=== PATIENT | female | born 2000 | race Caucasian/White ===

== ENCOUNTER 2023-01-14 16:20 | Observation (INO) | payer BC, SELFPAY ==
--- NOTE | ~2023-01-14 | CT_ITS ---
EXAMINATION: CT abdomen pelvis wo con DATE: 01/14/2023 20:00 INDICATION: pulmonary nodules, evaluation for metastatic sprea TECHNIQUE: Computed tomography (CT) of the abdomen and pelvis was performed without intravenous contr ast. Automated exposure control and iterative reconstruction technique were employed. The dose-length product was 1663.64 mGy-cm. COMPARISON: None. FINDINGS: Lower thorax: Unremarkable Liver: Normal. Biliary/Gallbladder: Gallbladder is normal. No bile duct dilation. Pancreas: No mass or duct dilation. Spleen: Normal. Adrenals:No mass. Kidneys: No mass, stone, or hydronephrosis. GI tract: No small or large bowel dilation. Normal appendix. Mesentery/Peritoneum: No ascites, mass, or free air. Scattered prominent mesenteric nodes, not pathol ogic by size criteria. Retroperitoneum: No mass. Scattered retroperitoneal lymph nodes, not pathologic by size criteria Pelvis: Pelvic organs are within normal limits. Soft Tissues: Soft tissues and body wall unremarkable. Bones: No acute osseous finding. IMPRESSION: No acute abdominal pelvic process detected. Reviewed, dictated and finalized at location K.
--- NOTE | ~2023-01-14 | XR_ITS ---
XR chest 1V portable 01/16/2023 05:37 Indication: Nodular infiltrates Procedure: AP portable chest Comparison: 01/14/2023 Findings: Heart size normal. Bilateral interstitial infiltrates. No pleural effusion or pneumothorax. No acute osseous abnormality. Impression: 1: Diffuse bilateral interstitial infiltrates may represent edema or pneumonia. Reviewed, dictated and finalized at location A. Impression: 1: Diffuse bilateral interstitial infiltrates may represent edema or pneumonia.
--- NOTE | ~2023-01-14 | CT_ITS ---
EXAMINATION: CTA chest PE protocol DATE: 01/14/2023 18:35 INDICATION: Shortness of breath TECHNIQUE: Computed tomography angiography (CTA) of the chest was performed with 100 mL Omnipaque-350 intravenous contrast timed to evaluate the pulmonary arteries. Coronal maximum intensity projection 3D-reconstructions were created by the technologist. The dose-length product (DLP) was 948.42 mGy-cm. Automated exposure control and iterative reconstruction technique were employed. COMPARISON: X-ray chest, same date. FINDINGS: Lung parenchyma and airways: Innumerable bilateral pulmonary nodules affecting all lobes and range in size between several millimeters to 1.5 cm. The nodules have subtle surrounding groundglass halos no definite central cavitation. Pleura: Unremarkable. Thoracic inlet, axillae and chest wall: Unremarkable. Thoracic aorta: Normal. Mediastinum: There are prominent but not pathologically enlarged mediastinal lymph nodes. Heart and pericardium: Normal. Coronary artery calcifications: Absent. Upper abdomen: No significant finding. Bones: No acute osseous finding. Pulmonary arteries: Study quality: Adequate. No pulmonary emboli detected. IMPRESSION: No CT evidence of pulmonary embolism. Innumerable pulmonary nodules, most likely secondary to septic emboli or fungal infection (such as as pergillosis, histoplasmosis, coccidiomycosis). Less common inflammatory/granulomatous diseases (nodular pulmonary amyloidosis, rheumatoid nodules, g ranulomatosis with polyarteritis) and neoplastic disease such as pulmonary lymphoma should be remain in the differential. Metastases are considered less likely given the patient's age. Reviewed, dictated and finalized at location K. IMPRESSION: No CT evidence of pulmonary embolism. Innumerable pulmonary nodules, most likely secondary to septic emboli or fungal infection (such as aspergillosis, histoplasmosis, coccidiomycosis). Less common inflammatory/granulomatous diseases (nodular pulmonary amyloidosis, rheumatoid nodules, granulomatosis with polyarteritis) and neoplastic disease such as pulmonary lymphoma should be remain in the differential. Metastases are considered less likely given the patient's age.
--- NOTE | ~2023-01-14 | XR_ITS ---
EXAMINATION: XR chest 2V Exam Date/Time: 01/14/2023 17:20 CDT HISTORY: SOB, mid chest pain, chest tightness Comparison: None. RESULT: Lines, tubes, and devices: None. Lungs and pleura: Scattered nodular appearing opacities. Diffuse moderate reticulonodular opacities and cuffing. Cardiomediastinal silhouette: Stable. Other: No acute osseous or upper abdominal finding. IMPRESSION: Scattered pulmonary nodules, overlying a background of bronchiolitis that can be seen with atypical i nfection, asthma, and small airways disease. Consider CT of the chest with contrast for further evalu ation. Reviewed, dictated and finalized at location K. IMPRESSION: Scattered pulmonary nodules, overlying a background of bronchiolitis that can b e seen with atypical infection, asthma, and small airways disease. Consider CT of the chest with contrast for further evaluation.
[2023-01-14 16:24] VITALS: BP 157/82; PULSE 126; RESP 20; TEMP 36.2; O2SAT 100
[2023-01-14 17:01] VITALS: O2SAT 100
[2023-01-14 17:03] VITALS: BP 148/78; PULSE 105; RESP 12; TEMP 37.3; O2SAT 100
[2023-01-14 17:06] VITALS: PULSE 103
[2023-01-14] MEDS: KETOROLAC 30 MG/ML VIAL (*BKC) IV PUSH (17:42)
[2023-01-14] MEDS: ALPRAZolam (*CRX) 0.5 MG TABLET PO (17:42)
[2023-01-14 17:46] LABS: Basophils Percent Auto 0.3 % (0.2-1.2); Eosinophils Absolute Auto 0.5 K/mm3 (0-0.3); Eosinophils Percent Auto 3.4 % (0-4.4); Hematocrit 40.7 % (37.0-47.0); Hemoglobin 13.5 g/dL (12.0-15.0); Immature Granulocyte Absolute 0.05 K/mm3 (0.00-0.031); Immature Granulocyte Percent A 0.3 % (0-0.5); Lymphocytes Absolute Auto 1.91 K/mm3 (0.9-3.2); Lymphocytes Percent Auto 13.1 % (18.3-44.2); Mean Corpuscular HGB Conc 33.2 g/dl (32-36); Mean Corpuscular Hemoglobin 29.7 pg (26-34); Mean Corpuscular Volume 89.6 fl (80-100); Monocytes Absolute Auto 1.1 K/mm3 (0.1-0.6); Monocytes Percent Auto 7.3 % (2.6-8.5); Neutrophils Percent Auto 75.6 % (45.5-73.1); Platelet Count Result 392 k/mm3 (150-375); Red Blood Count 4.54 M/mm3 (4.2-5.4); Red Cell Distribution Width 13.3 % (11.5-14.5); White Blood Count 14.6 K/mm3 (4.5-10.0)
[2023-01-14 18:06] LABS: Alanine Aminotransferase 18 U/L (6-35); Albumin Level 4.7 g/dL (3.5-5.1); Alkaline Phosphatase 80 U/L (38-126); Anion Gap 11 mmol/L (8-16); Aspartate Amino Transferase 29 U/L (14-36); Bilirubin,Total 0.5 mg/dL (0.2-1.3); Blood Urea Nitrogen 7 mg/dL (7-17); Calcium 9.6 mg/dL (8.4-10.2); Carbon Dioxide 26 mmol/L (22-30); Chloride 101 mmol/L (98-107); Estimated CRCL calculation 160 ml/min; Estimated Glomerular Filt Rate > 60; Glucose 94 mg/dL (65-110); Potassium 4.2 mmol/L (3.4-5.0); Sodium 138 mmol/L (137-145)
--- NOTE | 2023-01-14 19:03 | ED.SOB ---
HPI - SOB/Dyspnea General Chief Complaint: Shortness of Breath/Dyspnea Stated Complaint: Allergic reaction; SOB Time Seen by Provider: 01/14/23 16:54 History of Present Illness HPI Narrative: Patient is a 22-year-old female who presents ER with shortness of breath. Has pain with deep breath then. Feels like she cannot get a full deep breath. Reports she thinks she had a mobile piece of bread 2 days prior to symptom onset. No fevers or chills or sweats. No wheezing. No some fullness in her neck and central chest when she takes. Denies runny nose or sore throat or productive cough. She does report she has noticed some urticaria on her arms and lower back. She has started in the area body lotion reports its unscented. She began that the day the rash began 2 days ago. Patient reports at times she feels like she is having a panic attack. Patient reports that when she was younger, around 7 years ago, she lived in a room that had white mold growing above her room. Her mother confirms that they had to perform mold abatement. Patient was having issues with breathing and saw a homeopathic doctor who treated her with Claritin and symptoms improved. Patient has never had any abnormal imaging that her her mother remember. Additionally patient used to live on a farm when she was 6 years old. There was a mechanical silo in barn at the farm but she did not go inside the farm because it belonged to the [employer]. Patient's had no recent dental work. She does not use IV drugs Related Data Allergies Allergy/AdvReac Type Severity Reaction Status Date / Time cephalexin [From Keflex] Allergy Rash Verified 01/14/23 17:05 Review of Systems Review of Systems: All systems reviewed & are unremarkable except as noted in HPI and below Constitutional: Constitutional: Denies chills, Denies fatigue and Denies fever(s) ENT: Denies nasal congestion and Denies sore throat Cardiovascular: Cardiovascular: Reports chest pain, Denies rapid heart rate and Denies radiating jaw, neck or arm pain Respiratory: Respiratory: Denies cough, Reports dyspnea and Denies wheezing Gastrointestinal: Gastrointestinal: Denies abdominal pain, Denies nausea and Denies vomiting Integumentary/Breasts: Skin/Breast: Denies pruritus, Reports erythema, Reports rash and Denies skin ulcer [facility] Past Medical History Medical History (Updated 01/14/23 @ 21:10 by Thony Jackson MD) Anxiety Surgical History Surgical History (Updated 01/14/23 @ 19:51 by Thony Jackson MD) No pertinent past surgical history Social History Social History (Updated 01/14/23 @ 19:51 by Thony Jackson MD) Smoking status: Never smoker Substance use: never Exam Narrative: GENERAL: Anxious-appearing, morbidly obese, and in no acute distress. HEAD: Normocephalic, atraumatic. ENT: Mucous membranes moist. NECK: Supple. CHEST: Clear to auscultation. No respiratory distress. HEART: Tachycardic and regular. Normal peripheral pulses. EXTREMITIES: Normal range of motion. No edema. SKIN: Warm, dry, no rash. NEURO: Alert and oriented x3. PSYCH: Normal mood and affect. Course Course Emergency Course: 1939: Discussed case with Dr. Vasquez with pulmonology. He would like the patient admitted to the hospitalist service and additional testing to be run. He would like the patient to receive an HIV test as well as a test. He would request that blood cultures be ordered and patient be started on ceftriaxone and azithromycin (we will start levaquin due to cephalosporin allergy). He would also like the patient to have an echocardiogram tomorrow. Should the patient be able to provide sputum he would like to do sputum culture but patient reports she cannot provide any as she has not been having a productive cough. Furthermore he would like an ABG, thyroid testing, and a noncontrast CT scan of the abdomen pelvis. I have discussed the treatment plan at length with the patient and he
[2023-01-14 19:36] VITALS: BP 123/96; PULSE 96; RESP 20; O2SAT 97
--- NOTE | 2023-01-14 21:02 | PC.NURSE ---
pt has been stuck multiple times for blood work. able to obtain 1st set of cultures. phlebotomy at bedside to attempt for 2nd set.
[2023-01-14] MEDS: levoFLOXacin 750 MG/D5W 150 ML 750 MG/150 ML BAG 100 MG IVPB (21:15)
[2023-01-14 22:01] VITALS: BMI 47.3
--- NOTE | 2023-01-14 22:02 | ADMGEN ---
This patient, Dara Morocho, was admitted to Medical Room 254-01. Patient/family oriented to hospital policies and general routines including ID bracelet, bed and alarms, visiting hours, pain management, procedures, bathroom and other care routines, personal items, smoking policy, room service/diet, and visiting hours. Information on how to activate the Rapid Response Team has been discussed. Patient/Family are encouraged to report perceived risks to care and to ask questions if they do not understand what they are told or what they should do.
[2023-01-14 22:11] LABS: HIV 1/2 Ab P24 Ag Result Negative (Negative)
[2023-01-14 22:30] VITALS: BP 113/76; PULSE 88; RESP 20; TEMP 36.8; O2SAT 98
--- NOTE | 2023-01-14 22:39 | PC.NURSE ---
Ashley LEDEZMA aware unable to put in patient's medication, will call Kulwinder in AM.
--- NOTE | 2023-01-14 23:02 | PM.IMHP ---
H&P: HPI History of Present Illness Date/Time: 01/14/23 22:30 Chief Complaint: Shortness of breath and suspected allergic reaction. Narrative: This is a very pleasant 22-year-old female with asthma, mold allergy, and polycystic ovarian syndrome who presented to the emergency department via private vehicle from home for evaluation of shortness of breath and suspected allergic reaction. The patient provides the following history. On Tuesday morning she developed red and itchy eyes, sneezing, and small hives on the extremities and trunk. She has been taking Benadryl for her symptoms as she thought perhaps she had an allergic reaction to a piece of bread that was in the same loaf but far away from a piece of bread that had a small amount of mold growing. Since that time she has been feeling short of breath with some wheezing however her inhaler has not provided her with much benefit. She has been eating soft foods (banana, apple sauce) because she feels that her throat is tight when trying to swallow. She has also had some tightness in the upper chest, more so with deep inspiration, and feelings as though she cannot take in a deep breath. She has also had some mild nausea but no vomiting. She denies fever and sweats but reports that she is cold which is unusual for her. She was afebrile on arrival to the emergency department with stable vital signs. Her white blood cell count was a bit elevated 14.6 and her D-dimer was 0.50; CMP was unremarkable. Chest x-ray showed scattered pulmonary nodules and a subsequent CTA of the chest showed innumerable pulmonary nodules felt to be likely secondary to septic emboli or fungal infection with less common etiologies to include inflammatory/granulomatous diseases, pulmonary lymphoma, or metastases. CT of the abdomen pelvis showed no acute process. Pulmonology was consulted by the ED physician and Dr. Vasquez recommended starting her on azithromycin and ceftriaxone however she has a cephalosporin allergy and she was started on levofloxacin. She is being admitted in this setting for further treatment and evaluation. At the time my evaluation she feels okay and has no specific complaints aside from what is mentioned above. With further questioning she reports that her asthma is mainly exercise induced though it can flare up when the mold counts are high. She was exposed to some sort of white mold about 7 years ago which was apparently growing in the attic space above her bedroom. They underwent mold remediation and she has not had any exposure to mold or mildew since that time, to her knowledge. She grew up on a farm until the age of 6 however there were no animals at the farm and she never went into the silo. She denies recent travel and sick contacts. No dental pain or recent dental work. She has not been around animals or birds. She lives in an apartment in [place] and has not been exposed to well water. No personal or family history of autoimmune disease. No history of IV drug use. She denies risk factors for HIV and her screen was negative. Review of Systems Review of Systems: Twelve systems were reviewed and are negative except for as per HPI. [facility] Past Medical History Medical History (Updated 01/14/23 @ 23:16 by Ashley Abrams PA-C) Anxiety Asthma Depression Depression with anxiety Intermittent asthma Polycystic ovarian syndrome Surgical History Surgical History (Updated 01/14/23 @ 23:12 by Ashley Abrams PA-C) History of wisdom tooth extraction No pertinent past surgical history Family History Family History (Updated 01/14/23 @ 23:12 by Ashley Abrams PA-C) Other Family history non-contributory Social History Social History (Updated 01/14/23 @ 23:13 by Ashley Abrams PA-C) Social History: Surrogate medical decision maker: Jez Morocho, mother. Code status: Full code. Smoking status: Never smoker Alcohol intake: never Substance use: never Substance use type: d
[2023-01-15] MEDS: ALBUTEROL SULFATE (*SP) AEROSOL 1 PUFF 2 PUFF INHALATION (04:30)
[2023-01-15 04:55] VITALS: BP 121/80; PULSE 82; RESP 20; TEMP 36.4; O2SAT 98
[2023-01-15 05:44] LABS: Basophils Percent Auto 0.3 % (0.2-1.2); Eosinophils Absolute Auto 0.5 K/mm3 (0-0.3); Eosinophils Percent Auto 4.8 % (0-4.4); Hematocrit 37.5 % (37.0-47.0); Hemoglobin 12.3 g/dL (12.0-15.0); Immature Granulocyte Absolute 0.03 K/mm3 (0.00-0.031); Immature Granulocyte Percent A 0.3 % (0-0.5); Lymphocytes Absolute Auto 2.23 K/mm3 (0.9-3.2); Lymphocytes Percent Auto 21.5 % (18.3-44.2); Mean Corpuscular HGB Conc 32.8 g/dl (32-36); Mean Corpuscular Hemoglobin 29.9 pg (26-34); Mean Platelet Volume 9.1 fl (7.4-10.4); Monocytes Absolute Auto 0.9 K/mm3 (0.1-0.6); Monocytes Percent Auto 8.3 % (2.6-8.5); Neutrophils Absolute Auto 6.7 K/mm3 (1.3-6.7); Neutrophils Percent Auto 64.8 % (45.5-73.1); Platelet Count Result 328 k/mm3 (150-375); Red Blood Count 4.12 M/mm3 (4.2-5.4); Red Cell Distribution Width 13.2 % (11.5-14.5); White Blood Count 10.4 K/mm3 (4.5-10.0)
[2023-01-15 05:53] LABS: Anion Gap 12 mmol/L (8-16); Blood Urea Nitrogen 10 mg/dL (7-17); Calcium 9.1 mg/dL (8.4-10.2); Carbon Dioxide 25 mmol/L (22-30); Chloride 101 mmol/L (98-107); Estimated CRCL calculation 135 ml/min; Estimated Glomerular Filt Rate > 60; Glucose 84 mg/dL (65-110); Magnesium 1.9 mg/dL (1.6-2.3); Potassium 3.6 mmol/L (3.4-5.0); Sodium 138 mmol/L (137-145)
--- NOTE | 2023-01-15 06:00 | ECHO_ITS ---
Patient Info Name: Dara Morocho Age: 22 years : 2000 Gender: Female Ht: 66 in Wt: 296 lbs BSA: 2.58 m2 HR: 113 bpm BP: 155 / 85 mmHg Heart Rhythm: Sinus Rhythm Technical Quality: Poor Exam Date: 01/15/2023 10:29 AM Exam Location: [facility] Patient Status: Inpatient Admit Date: 01/14/2023 Staff Ordering Physician: Thony Jackson MD [employer] Consult[employer]: Gabriel Sawyer RDCS Attending Provider: Anel Pat DO Referring Physician: Manuel SPENCE; Exam Type: CA echo dop color flow w con Study Info Indications - posible septic emboli Complete two-dimensional, color flow and Doppler transthoracic echocardiogram is performed with contrast to opacify the left ventricle and to improve the deliniation of the left ventricle endocardial borders. Reason for Poor Study: poor patient cooperation Summary 1. Left ventricular chamber dimension is normal. 2. Left ventricular systolic function is normal, estimated at 60-65%. 3. There is mildly increased left ventricular wall thickness. 4. The left ventricular diastolic function is grade I diastolic dysfunction. 5. There is mild tricuspid valve regurgitation. 6. There is mild pulmonic regurgitation. 7. This is not a definitive study for analysis of endocarditis. Left Ventricle Left ventricular chamber dimension is normal. Left ventricular systolic function is normal, estimated at 60-65%. There is mildly increased left ventricular wall thickness. The left ventricular diastolic function is grade I diastolic dysfunction. Right Ventricle Right ventricular chamber dimension is normal. Right ventricular systolic function is normal. Left Atria Left atrial chamber dimension is normal. Right Atria Right atrial chamber dimension is normal. Atrial Septum Intact interatrial septum visualized by color flow imaging. Aortic Valve The aortic valve is trileaflet. There is mild aortic valve sclerosis. There is no aortic valve stenosis. There is trace aortic valve regurgitation. Pulmonic Valve The pulmonic valve is normal. There is no pulmonic valve stenosis. There is mild pulmonic regurgitation. Mitral Valve The mitral valve has normal leaflets. There is no mitral valve stenosis. There is trace mitral valve regurgitation. Tricuspid Valve The tricuspid valve leaflets are normal. There is no significant tricuspid valve stenosis. There is mild tricuspid valve regurgitation. No pulmonary hypertension, estimated pulmonary arterial systolic pressure is 15 mmHg. Pericardium/Pleural The pericardium appears normal. There is no pericardial effusion. Inferior Vena Cava Normal inferior vena cava with >50% collapse upon inspiration consistent with normal right atrial pressure, 10 mmHg. Aorta The aortic root size at the sinus of Valsalva is normal. The prox ascending aorta size is normal. Left Ventricular Outflow Tract Name Value Normal LVOT 2D LVOT Diameter 2.02 cm LVOT Doppler LVOT Peak Gradient 6 mmHg LVOT Mean Gradient 3 mmHg LVOT VTI 24.80 cm LVOT VTI/AV VTI Ratio 1.02 LVOT Stroke Volume 79.
[2023-01-15 07:12] LABS: Free T4 Free Thyroxine Reflex 1.37 ng/dL (0.78-2.19)
[2023-01-15 07:18] VITALS: O2SAT 97
[2023-01-15 07:22] LABS: Alveolar/Arterial O2 Gradient 60.2 mmHg; Base Excess ABG 1.4 mEq/l (+/-2.0); Carboxyhemoglobin 0.2 % THb (0-2.0); Fractional Inspired Oxygen 21 %; HCO3 ABG 25.1 mEq/l (22.0-26.0); Methemoglobin ABG 0.4 %THb (0-1.5); Oxygen Content ABG 15.3 %vol (16.0-22.0); PCO2 ABG 36.6 mmHg (35.0-45.0); PO2 FiO2 Ratio Arterial Blood 2.18 %; Reduced Hemoglobin 16.7 %THb (0-5.0); Total Hemoglobin 13.2 g/dL (12.0-18.0); pH ABG 7.454 (7.350-7.450)
[2023-01-15 07:30] LABS: Oxygen Saturation ABG 84.1 % (95.0-100.0); PO2 ABG 45.7 mmHg (80.0-100.0)
[2023-01-15 07:31] LABS: Device ROOM AIR; Modified Allen's Test Pass; Oxyhemoglobin 82.7 % THb (90.0-100.0); Site Drawn RIGHT RADIAL
[2023-01-15 08:00] LABS: Total Triiodothyronine (T3) 1.26 NG/ML (0.97-1.69)
[2023-01-15] MEDS: PERFLUTREN LIPID MICROSPHERES 1.5 ML VIAL DILUTED TO 10 ML TOTAL VOLUME IV PUSH (10:30)
[2023-01-15 11:37] VITALS: BP 155/85; PULSE 113; RESP 16; TEMP 36.7; O2SAT 97
--- NOTE | 2023-01-15 12:15 | PM.CNPUL ---
Assessment and Plan Assessment and plan (1) Pulmonary nodules: Code(s): R91.8 - Other nonspecific abnormal finding of lung field Status: Acute Assessment and Plan: Patient with a history of exercise-induced asthma, Nataliia's, polycystic ovarian syndrome and anxiety presents on 01/14 with 2 day history of cough, sneezing, rhinorrhea, wheezing, itching hives partially relieved by Benadryl at home. She has an eosinophilia of approximately 500 per micro L with an elevated white blood cell count, and a CT scan with diffuse patchy nodules throughout all lung [place] ranging in size up to 1.5 cm. There is no focal consolidation, interstitial lung disease, honeycombing, cavitation, bronchiectasis or pleural disease. CT abdomen and the pelvis is negative for malignancy. I suspect the patient's constellation of symptoms and radiologic findings are related to an allergic reaction. She had a history of a mold allergy at age 16 that gave her respiratory issues. She started a new thyroid medicines on 12/31/2022. Will start Solu-Medrol 40 mg IV q.6, loratadine 10 mg p.o. q.day and Pepcid 20 IV q.12 hours. Possible pneumonia: Agree with continuation of levofloxacin at this time. She is making no phlegm. HIV negative. blood cultures are pending. I will send a COVID, RSV, influenza swab. I will send an extended respiratory viral pathogen to [facility]. Urine Legionella, urine pneumococcal and urine Histoplasma antigens are pending. QuantiFERON gold ordered. Blastomyces, Latosha, Coccidioides, Histoplasma, Aspergillus and mycoplasma IgM are pending. Regarding other etiologies for her infiltrates she has Nataliia's and I will send additional serologies looking for autoimmune disease and or connective tissue disease: I will order a BEBE screen that includes 11 different auto antibodies, an ANCA screen, a rheumatoid factor, anti CCP antibody, hypersensitivity pneumonitis panel, a CPK, an aldolase level, ESR, CRP and myomarker 3 plus profile. I will check a chest x-ray on 01/16. Discussed with Ronan Calzada, will follow with you. History of Present Illness History of Present Illness Consult date: 01/15/23 Chief complaint: multifocal pneumonia, anxiety, lung nodules Narrative: 01/15/2023: This is a new pulmonary consult for bilateral pulmonary infiltrates. 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 Regarding patient's exercise-induced asthma she was diagnosed at age 5-6 and would only have symptoms when she would exert herself 7 heavily. She would take p.r.n. albuterol and this would help her. Her last albuterol use was 2 months ago on an average throughout her life she takes 1-2 puffs every 2-3 months. She has no respiratory limitations in her activities of daily living and walks 10,000 steps a day. 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 She states she thinks she had PFTs previously but had never had a CT scan. Patient grew up on a farm until age 6. At age 16 patient had respiratory issues where she could only walk 5 steps and then had dyspnea on exertion. It was found that she had mold in the attic above her bed room and this mold was removed and the patient was placed on loratadine and improved. She had been on loratadine up until June of 2022 and then stop taking this because she was no longer having any symptoms. Patient has Nataliia's and has been on levo thyroxine and she saw her physician on 12/30/2022 and they switched her to a new levothyroxine pill called unit thyroid 50 mcg a day which she started on 12/31. On 01/10 the patient ate a piece of bread from a low 5 that had mold growing on a piece of bread on the other end of the lobe. She had no issues at that time and had no issues and was in her usual state of health on 01/11. On 01/12 at 1:00 a.m. in the morning the patient was playing vide
--- NOTE | 2023-01-15 13:09 | PM.IMPN ---
Progress Note: A&P Assessment and Plan (1) Pulmonary nodules: Code(s): R91.8 - Other nonspecific abnormal finding of lung field Status: Acute Assessment and Plan: Possibly infectious versus allergic, continue pulmonology workup and treat with histamine 1 and histamine 2 blockers as well as Claritin daily and p.r.n. Benadryl. IV steroids also ordered by pulmonology. If condition worsens consider IM epinephrine. (2) Intermittent asthma: Code(s): J45.20 - Mild intermittent asthma, uncomplicated Status: Acute Assessment and Plan: Albuterol inhaler available as needed, IV steroids ordered. (3) Depression with anxiety: Code(s): F41.8 - Other specified anxiety disorders Status: Acute Assessment and Plan: Patient appears to have normal mood and normal affect at this time. 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 Regarding patient's exercise-induced asthma she was diagnosed at age 5-6 and would only have symptoms when she would exert herself 7 heavily.? She would take p.r.n. albuterol and this would help her.? Her last albuterol use was 2 months ago on an average throughout her life she takes 1-2 puffs every 2-3 months.? She has no respiratory limitations in her activities of daily living and walks 10,000 steps a day.? 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 She states she thinks she had PFTs previously but had never had a CT scan. [place] 6.? At age 16 patient had respiratory issues where she could only walk 5 steps and then had dyspnea on exertion.? It was found that she had mold in the attic above her bed room and this mold was removed and the patient was placed on loratadine and improved.? She had been on loratadine up until June of 2022 and then stop taking this because she was no longer having any symptoms. Patient has Nataliia's and has been on levo thyroxine and she saw her physician on 12/30/2022 and they switched her to a new levothyroxine pill called unit thyroid 50 mcg a day which she started on 12/31. On 01/10 the patient ate a piece of bread from a low 5 that had mold growing on a piece of bread on the other end of the lobe.? She had no issues at that time and had no issues and was in her usual state of health on 01/11.? On 01/12 at 1:00 a.m. in the morning the patient was playing video games sitting down and developed cough, sneezing and rhinorrhea for the next 2 hours.? She went to sleep and slept till 9:00 a.m..? She called in to sick to work and later in the day developed wheezing, shortness of breath which was unrelieved by an inhaler.? She started her menstrual cycle and took ibuprofen.? Of note she gets cramping with her menstrual cycles and takes ibuprofen in the past and has never had any respiratory issues or cutaneous skin rashes at this time.? Her menstrual.? Had severe cramping at 10/10 and in the past these that lasted 24 hours and this current menstrual cycle she had cramping that lasted 24 hours.? On 01/13 the patient developed chest tightness, throat discomfort and swelling under her jaw.? She started taking Benadryl every 6 hours and she said that this did help her.? Her shortness of breath and chest tightness were described as 10/10. On 01/14 the patient continued with chest heaviness, tightness and she developed hives on her arms that eventually migrated down to her palms, her trunk and her thighs.? The patient presented to the emergency room
[2023-01-15] MEDS: LORATADINE 10 MG TABLET PO (13:37)
[2023-01-15] MEDS: methylPREDNISolone SOD SUCC 40 MG VIAL IV PUSH ×3 (13:38→23:42)
[2023-01-15 14:18] LABS: Creatine Kinase 53 U/L (30-135)
[2023-01-15 14:22] LABS: CRP 5.6 mg/dL (<1.0)
[2023-01-15 14:40] VITALS: BP 152/108; PULSE 80; RESP 16; TEMP 36.6; O2SAT 97
[2023-01-15 15:22] LABS: Erythrocyte Sedimentation Rate > 140 mm/hr (0-20)
[2023-01-15 15:48] LABS: Rheumatoid Factor < 12.0 IU/ML (<12)
[2023-01-15 16:00] VITALS: BP 121/90; PULSE 82; RESP 14; TEMP 36.6; O2SAT 97
[2023-01-15 17:05] LABS: Influenza A QL RT-PCR Negative (Negative); Influenza B QL RT-PCR Negative (Negative); RSV RNA, RT-PCR Negative (Negative); SARS-CoV-2 RNA PCR Negative (Negative)
[2023-01-15 20:26] VITALS: BP 132/87; PULSE 78; RESP 20; TEMP 36.1; O2SAT 99
[2023-01-15] MEDS: FAMOTIDINE 20 MG/2 ML VIAL IV PUSH (20:43)
[2023-01-15] MEDS: levoFLOXacin 750 MG/D5W 150 ML 750 MG/150 ML BAG 100 MG IVPB (20:43)
[2023-01-16 00:45] VITALS: BP 124/64; PULSE 64; RESP 18; TEMP 36.2; O2SAT 96
[2023-01-16 05:00] VITALS: BP 131/62; PULSE 63; RESP 18; TEMP 36.4; O2SAT 96
[2023-01-16] MEDS: methylPREDNISolone SOD SUCC 40 MG VIAL IV PUSH ×2 (05:25→11:15)
[2023-01-16] MEDS: LEVOTHYROXINE SODIUM 50 MCG TABLET PO (05:25)
[2023-01-16] MEDS: LORATADINE 10 MG TABLET PO (08:02)
[2023-01-16] MEDS: FAMOTIDINE 20 MG/2 ML VIAL IV PUSH (08:03)
--- NOTE | 2023-01-16 08:33 | PM.PNPUL ---
Progress Note: A&P Assessment and Plan (1) Pulmonary nodules: Code(s): R91.8 - Other nonspecific abnormal finding of lung field Status: Acute Assessment and Plan: Patient with a history of exercise-induced asthma, Nataliia's, polycystic ovarian syndrome and anxiety presents on 01/14 with 2 day history of cough, sneezing, rhinorrhea, wheezing, itching hives partially relieved by Benadryl at home. She has an eosinophilia of approximately 500 per micro L with an elevated white blood cell count, and a CT scan with diffuse patchy nodules throughout all lung [place] ranging in size up to 1.5 cm. There is no focal consolidation, interstitial lung disease, honeycombing, cavitation, bronchiectasis or pleural disease. CT abdomen and the pelvis is negative for malignancy. I suspect the patient's constellation of symptoms and radiologic findings are related to an allergic reaction. She had a history of a mold allergy at age 16 that gave her respiratory issues. She started a new thyroid medicines on 12/31/2022. Will start Solu-Medrol 40 mg IV q.6, loratadine 10 mg p.o. q.day and Pepcid 20 IV q.12 hours. Possible pneumonia: Agree with continuation of levofloxacin at this time. She is making no phlegm. HIV negative. blood cultures are pending. I will send a COVID, RSV, influenza swab. I will send an extended respiratory viral pathogen to [facility]. Urine Legionella, urine pneumococcal and urine Histoplasma antigens are pending. QuantiFERON gold ordered. Blastomyces, Latosha, Coccidioides, Histoplasma, Aspergillus and mycoplasma IgM are pending. Regarding other etiologies for her infiltrates she has Nataliia's and I will send additional serologies looking for autoimmune disease and or connective tissue disease: I will order a BEBE screen that includes 11 different auto antibodies, an ANCA screen, a rheumatoid factor, anti CCP antibody, hypersensitivity pneumonitis panel, a CPK, an aldolase level, ESR, CRP and myomarker 3 plus profile. I will check a chest x-ray on 01/16. 01/16 overall the patient states she is better. She has no shortness of breath and has been walking, room air saturations 96%. She says that her chest tightness and inspiratory pressure her graded as 4/10 and slightly improved. The rash on her arms as improved. The swelling under her jaw has improved. She denies fever, chills, cough or hemoptysis. Chest x-ray demonstrates continued interstitial infiltrates with no worsening. ESR is greater than 140, CRP is 5.6, rheumatoid factor less than 12, CPK 53. Echocardiogram with LVEF 60-65%, grade 1 diastolic dysfunction, normal RV systolic function and size, normal right atrial size, PASP 15. QuantiFERON gold can only be drawn Tuesday through . Plan: Overall patient's constellation of symptoms have improved with treatment for an allergic reaction with Solu-Medrol, loratadine and Pepcid. I would continue to treat for an allergic reaction as well as pneumonia with Levaquin. From a pulmonary perspective patient can be discharged on these pulmonary medications: Prednisone 40 mg p.o. q.day x4 days. Loratadine 10 mg p.o. q.day Levofloxacin 750 mg p.o. q.day X 5 days Follow-up in the Pulmonary Clinic in 3-4 weeks. 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 Discussed with Ronan Calzada, call with questions. Subjective Date/time seen: 01/16/23 08:33 Interval history: 01/15/2023:? This is a new pulmonary consult for bilateral pulmonary infiltrates.? 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 Regarding patient's exercise-induced asthma she was diagnosed at age 5-6 and would only have symptoms when she would exert herself 7 heavily.? She would take p.r.n. albuterol and this would help her.? Her last albuterol use was 2 months ago on an average throughout her life she takes 1-2 puffs every 2-3 months.? She has no respiratory limitations in
[2023-01-16 10:18] VITALS: BP 134/78; PULSE 66; RESP 18; TEMP 36.6; O2SAT 98
--- NOTE | 2023-01-16 10:22 | PM.DS ---
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 She is being treated for allergic/inflammatory pulmonary nodules with prescriptions for prednisone loratadine levofloxacin and Pepcid. Patient to follow-up in 3-[address] Vasquez from pulmonology. DS: Summary Hospital Course Reason for hospitalization: This patient was admitted to the hospital for numerous pulmonary nodules presumed to be infectious/pneumonia. Hospital Course: Patient was admitted with shortness of breath history exercise induced asthma and CXR findings concerning infectious pulmonary nodules. She underwent CTA scan of the chest and CT abdomen pelvis with IV contrast to rule out metastatic disease and pulmonary emboli. She was initiated on Levaquin IV. Dr. Vasquez with Pulmonology saw patient and extensive workup for infectious, allergic and inflammatory causes of nodules was started. Inflammatory markers very elevated. Echocardiogram did not show obvious concern for septic emboli. Patient treated with steroids and histamine blockers primarily with improvement in symptoms. Patient only used albuterol inhaler one time while admitted. Per Dr. Vasquez's request, patient discharged with prescriptions for Levaquin, loratadine and prednisone. Pepcid and albuterol inhaler also prescribed. Patient had family present and all questions were addressed. Status at Discharge Cognitive/behavioral status at discharge: Awake, alert, oriented and pleasant Functional status at discharge: independent ambulation Overall status at discharge: patient is progressing back to baseline Time Spent with Patient Time attestation: Total time spent providing and/or coordinating discharge services: Time spent: Greater than 30 minutes Exam Const: General: cooperative, healthy appearing and comfortable Orientation/consciousness: oriented to person, oriented to place and oriented to time HENMT: Head: normal to inspection Ears: hearing grossly normal bilaterally Other: Face with subtle swelling in the submandibular region. improved Eyes: General: appearance normal, both eyes and all related structures Neck: Neck: normal visual inspection Chest: Chest palpation & inspection: normal inspection of the chest Resp: Effort & Inspection: normal respiratory effort and able to speak in complete sentences Auscultation: no crackles, no rales, no rhonchi, no wheezes and lung sounds not diminished Cardio: Jugular venous distension: no JVD GI: Inspection: normal to inspection Skin: General skin exam: normal color Neuro: General: oriented to person, oriented to place and oriented to time Extrem: General: normal to inspection Other: Improved red to purple non raised patchy rash the inner aspects of both arms near the axilla. nearly resolved today Psych: Appearance: grossly normal Mental Status: mental status grossly normal Affect: normal affect DS: Data Data Completed and Pending Completed studies during hospitalization: CXR and CTA of chest, CT abdomen/pelvis, echocardiogram Labs on day of discharge: Labs from last 24 hours 01/15/23 01/15/23 01/15/23 16:21 15:26 13:47 ESR > 140 H Total Creatine Kinase 53 C-Reactive Protein 5.6 H Aldolase Pending Rheuma
[2023-01-16] MEDS: diphenhydrAMINE HCl CAP 25 MG CAPSULE 50 MG PO (11:14)
[2023-01-19 05:03] LABS: C1 Esterase Inhibitor 100 % (>=68)
[2023-01-19 05:14] LABS: Pneumococcal Antigen Urine Not Detected (Not Detected)
[2023-01-19 09:34] LABS: Aldolase 4.9 U/L (<=8.1)
[2023-01-19 14:34] LABS: Mycoplasma IgM Antibody Titer 25 U/mL (<770)
[2023-01-19 22:45] LABS: ANA Cascade Screen Negative (Negative); Anti Cyclic Citrullinated Pept <16 Units (<20)
[2023-01-20 19:41] LABS: JO-1 AB <11 SI (<11); MI-2 Alpha Ab <11 SI (<11); MI-2 Beta Ab <11 SI (<11); NXP-2 AB <11 SI (<11); TIF1 Gamma Ab <11 SI (<11)
[2023-01-21 08:18] LABS: Legionella pneumophila Ag Ur Not Detected (Not Detected)
[2023-01-22 11:27] LABS: Blastomyces Antibody Negative; Candida Antibody Negative; Coccidioides Antibody Negative
[2023-01-22 11:28] LABS: Histoplasma Antibody Negative
[2023-01-24 14:17] LABS: ANCA Screen Negative (Negative)
== END 2023-01-16 11:31 | disposition home or self-care (01) ==
LOC: ANHED 17:24 → ANH2MED 21:10
PROVIDERS: Internal Medicine Pulmonary Disease; Nurse Practitioner; Physician Assistant; Admitting Provider Internal Medicine; Emergency Provider Emergency Medicine; Visit Provider Internal Medicine
DX: R91.8 Other nonspecific abnormal finding of lung field (principal); J45.990 Exercise induced bronchospasm; F41.8 Other specified anxiety disorders; E06.3 Autoimmune thyroiditis; Z20.822 Contact with and (suspected) exposure to COVID-19; L50.9 Urticaria, unspecified; R07.9 Chest pain, unspecified; I36.1 Nonrheumatic tricuspid (valve) insufficiency; I05.8 Other rheumatic mitral valve diseases; Z11.4 Encounter for screening for human immunodeficiency virus [HIV]; E28.2 Polycystic ovarian syndrome; R11.0 Nausea; D72.829 Elevated white blood cell count, unspecified; Z79.51 Long term (current) use of inhaled steroids; Z79.899 Other long term (current) drug therapy
CPT/HCPCS: 36415; 36600; 71045; 71046; 71275; 74176; 80048; 80053; 81025; 82085; 82375; 82550; 82805; 83050; 83735; 84182; 84439; 84443; 84480; 85025; 85380; 85652; 86036; 86038; 86140; 86160; 86200; 86331; 86430; 86606; 86609; 86612; 86628; 86635; 86698; 86703; 86738; 87040; 87385; 87449; 87637; 87899; 96365; 96366; 96375; 96376; 99285; A9270; C8929; G0378; G0432; J1885; J1956; J2920; Q9957; Q9967

== ENCOUNTER 2023-02-25 10:14 | Outpatient (CLI) | payer BC, SELFPAY ==
--- NOTE | ~2023-02-25 | CT_ITS ---
CT Scan of the Chest without Contrast: Clinical Indication: Nonspecific abnormal finding of lung field Technique: Contiguous sections were acquired throughout the chest without intravenous contrast. Dose reduction technique was used on this scan by utilizing automated exposure control and iterative recon struction technique. The dose-length product (DLP) was 376.08 mGy-cm. COMPARISON: 01/14/2023 Findings: There is no evidence of any significant mediastinal, hilar or axillary lymphadenopathy. The mediastin al soft tissues appear normal. There is no evidence of pleural or pericardial effusion. The lungs are clear. No pulmonary nodules or infiltrates are noted. Images through the upper abdomen reveal no abnormalities. Impression: No significant abnormalities seen. Reviewed, dictated and finalized at location . Impression: No significant abnormalities seen.
== END 2023-02-25 10:15 | disposition home or self-care (01) ==
LOC: ANHIMG 10:17
PROVIDERS: Visit Provider Internal Medicine Pulmonary Disease
DX: R91.8 Other nonspecific abnormal finding of lung field (principal)
CPT/HCPCS: 71250